=== PATIENT | male | born 1955 | race Caucasian/White ===

== ENCOUNTER 2019-06-26 08:01 | Emergency (ER) | payer MEDICARE, OTHER ==
[~2019-06-26] VITALS: Ht 180.3 cm; Wt 86.2 kg
[2019-06-26] MEDS ORDERED: TAMIFLU 75MG CA75 MG PO (09:14)
[2019-06-26] MEDS ORDERED: FLONASE ALLERG9.9 ML NAS (09:14)
[2019-06-26] MEDS ORDERED: MUCINEX DM 30/61 TAB PO (09:14)
[2019-06-26] MEDS ORDERED: CEPHALEXIN500 M1 PO (10:26)
== END 2019-06-26 09:15 | disposition home or self-care (01) ==
LOC: ED 08:01 → EDSEX 08:14 → ED 08:14
DX: J10.1 Influenza due to other identified influenza virus with other respiratory manifestations (principal); L03.116 Cellulitis of left lower limb; I10 Essential (primary) hypertension; E78.00 Pure hypercholesterolemia, unspecified; E11.9 Type 2 diabetes mellitus without complications; Z87.891 Personal history of nicotine dependence